=== PATIENT | female | born 1995 | race Caucasian/White ===

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

== ENCOUNTER 2017-06-24 17:55 | Emergency (ER) | payer MEDICAID ==
[~2017-06-24] VITALS: Ht 162.6 cm; Wt 71.2 kg
[2017-06-24 18:28] VITALS: BP 111/66
--- NOTE | 2017-06-24 18:48 | NUR ---
Patient to bed 08.
--- NOTE | 2017-06-24 18:48 | NUR ---
22F BIB FAMILY C/O LEFT LOWER BACK PAIN, RADIATES TO RT LOWER BACK, SHARP, 7/10 X 5 DAYS; PT STATES " I WAS MOPPING AND I HEARD SOMETHING POP"; PT STATES NO TRAUMA OR INJURY TO SITE AT THIS TIME; PT AA&OX4, PERRLA, BL LUNG SOUNDS CLEAR, RR EVEN/UNLABORED, SKIN IS WARM/DRY/INTACT AT THIS TIME; PT STATES NO N/V/D AT THIS TIME; STEADY GAIT; PT RESTING IN BED WITH HOB ELEVATED AND IN LOWEST POSITION; POSITIONED FOR COMFORT; ER MD MADE AWARE OF STATUS. WILL CONTINUE TO MONITOR.
--- NOTE | 2017-06-24 19:14 | NUR ---
GOT REPORT FROM TEODORO ROSALES.
--- NOTE | 2017-06-24 19:14 | NUR ---
Pt report given to TEODORO HORTON. Transfer of care at this time.
--- NOTE | 2017-06-24 19:15 | NUR ---
Rosendo roque in ED - 06/24/17 at 1916 by PAR[facility] TPt report given to TEODORO HINTON. Transfer of care at this time.
[2017-06-24] MEDS ORDERED: IBUPROFEN 800 MG TAB PO ONE (19:25)
--- NOTE | 2017-06-24 19:25 | NUR ---
Patient being evaluated at bedside.
--- NOTE | 2017-06-24 19:30 | NUR ---
PT. TAKEN TO XRAY
--- NOTE | 2017-06-24 19:44 | NUR ---
PT. BACK FROM XRAY
--- NOTE | 2017-06-24 20:15 | NUR ---
Patient discharged with v/s stable. Written and verbal after care instructions given and explained. Patient alert, oriented and verbalized understanding of instructions. Ambulatory with steady gait. All questions addressed prior to discharge. ID band removed. Patient advised to follow up with PMD. Rx of MOTRIN 800 MG given. Patient educated on indication of medication including possible reaction and side effects. Opportunity to ask questions provided and answered.
[2017-06-24 20:21] VITALS: BP 111/66
== END 2017-06-24 20:15 | disposition home or self-care (01) ==
LOC: MED 17:55
DX: M54.5 Low back pain (principal)
CPT/HCPCS: 72220; 81002; 81025; 99284

== ENCOUNTER 2017-09-12 14:55 | Emergency (ER) | payer MEDICAID ==
[~2017-09-12] VITALS: Ht 162.6 cm; Wt 68.0 kg
[2017-09-12 14:58] VITALS: BP 134/76
--- NOTE | 2017-09-12 15:09 | NUR ---
PT AMBULATED TO BED 12
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
--- NOTE | 2017-09-12 15:40 | NUR ---
Female Die Grinder accompanied female patient for Pelvic Exam.
[2017-09-12 17:12] VITALS: BP 132/71
== END 2017-09-12 17:12 | disposition home or self-care (01) ==
LOC: MED 14:55
DX: R10.30 Lower abdominal pain, unspecified (principal)
CPT/HCPCS: 81002; 81025; 87070; 87205; 87210; 99284